=== PATIENT | male | born 1975 | race Caucasian/White ===

== ENCOUNTER 2017-11-02 17:10 | Observation (INO) ==
[2017-11-02] MEDS ORDERED: ASPIRIN 325 MG TABLET PO STA (17:53)
[2017-11-02 18:09] LABS: Basophils # 0.1 10*3/uL (0.0-0.2); Basophils % 0.7 % (0.0-0.8); Eosinophils # 0.4 10*3/uL (0.0-0.87); Eosinophils % 2.1 % (0.00-10.9); Hematocrit 49.3 VOL% (42.0-52.0); Hemoglobin 17.4 GM/DL (14.0-18.0); Immature Granulocytes % 0.5 %; Immature Granulocytes Absolute 0.08 #; Lymphocytes # 4.1 10*3/uL (1.4-4.0); Lymphocytes % 23.3 % (21.2-54.2); Mean Corpuscular HGB Conc 35.3 GM/DL (32-36); Mean Corpuscular Hemoglobin 31 PG (27-34); Mean Platelet Volume 9.9 FL (9.6-12.0); Monocytes # 1.1 10*3/uL (0.11-0.8); Monocytes % 6.4 % (1.7-12.7); Neutrophils # 11.7 10*3/uL (1.4-7.4); Platelet Count 296 T/CUMM (130-400); Red Cell Distribution Width 12.2 % (9.3-17.3); White Blood Count 17.4 T/CUMM (4-12)
[2017-11-02 18:24] LABS: Albumin 3.5 G/DL (3.4-5.0); Bilirubin,Total 0.4 MG/DL (0.2-1.0); Calcium 9.5 MG/DL (8.5-10.1); Osmolality,Calculated 279.7 MOS/KG (273-304); Potassium 3.6 MMOL/L (3.5-5.1); Total Protein 8.1 G/DL (6.4-8.3)
[2017-11-02] MEDS ORDERED: NITROGLYCERIN 2% OINT 1 INCH/GM PACK TOP STA (18:30)
[2017-11-02 18:42] LABS: Barbiturates Screen,Urine Negative (Negative); Benzodiazepines Screen,Urine Negative (Negative); Cannabinoid Screen,Urine Negative (Negative); Opiate Screen,Urine Negative (Negative); Phencyclidine Screen,Urine Negative (Negative)
[2017-11-02] MEDS ORDERED: ACETAMINOPHEN 325 MG TABLET PO PRN (20:34)
[2017-11-02] MEDS ORDERED: DEXTROSE 50% 25 GM/50 ML VIAL IV PRN (20:34)
[2017-11-02] MEDS ORDERED: GLUCAGON 1 MG VIAL IM PRN (20:34)
[2017-11-02 21:34] LABS: Risk Ratio 9.61; VLDL CHOLESTEROL 85.4 MG/DL
[2017-11-02] MEDS: SODIUM CHLORIDE 0.9% 1,000 ML IV SCH (21:52)
[2017-11-02] MEDS: ATORVASTATIN 40 MG TABLET PO SCH (21:52)
[2017-11-02 22:32] LABS: Risk Ratio 9.65; Thyroid Stimulating Hormone 7.13 uIU/ml (0.358-3.74); VLDL CHOLESTEROL 68.4 MG/DL
[2017-11-03] MEDS: INSULIN LISPRO 100 UNIT/ML SUBCUT SCH ×4 (00:15→17:27)
[2017-11-03 00:41] LABS: Alanine Aminotransferase 55 U/L (16-61); Albumin 2.9 G/DL (3.4-5.0); Alkaline Phosphatase 130 U/L (45-117); Aspartate Amino Transferase 36 U/L (0-37); Bilirubin,Total < 0.39 MG/DL (0.2-1.0); Blood Urea Nitrogen 12 MG/DL (7-18); Calcium 8.9 MG/DL (8.5-10.1); Glucose 195 MG/DL (74-106); Osmolality,Calculated 281.5 MOS/KG (273-304); Potassium 3.6 MMOL/L (3.5-5.1); Sodium 139 MMOL/L (136-145); Total Protein 6.8 G/DL (6.4-8.3)
[2017-11-03 00:42] LABS: Basophils # 0.1 10*3/uL (0.0-0.2); Basophils % 0.7 % (0.0-0.8); Eosinophils # 0.4 10*3/uL (0.0-0.87); Eosinophils % 3.1 % (0.00-10.9); Hematocrit 45.6 VOL% (42.0-52.0); Hemoglobin 16.1 GM/DL (14.0-18.0); Immature Granulocytes % 0.7 %; Lymphocytes # 5.5 10*3/uL (1.4-4.0); Lymphocytes % 39.7 % (21.2-54.2); Mean Corpuscular HGB Conc 35.3 GM/DL (32-36); Mean Corpuscular Hemoglobin 31 PG (27-34); Mean Corpuscular Volume 87.2 FL (87-102); Monocytes # 0.8 10*3/uL (0.11-0.8); Monocytes % 5.6 % (1.7-12.7); Neutrophils # 6.9 10*3/uL (1.4-7.4); Neutrophils % 50.2 % (38.7-73.9); Platelet Count 266 T/CUMM (130-400); Red Blood Count 5.23 MC/CUMM (3.8-5.5); Red Cell Distribution Width 12.2 % (9.3-17.3); White Blood Count 13.8 T/CUMM (4-12)
[2017-11-03] MEDS: SODIUM CHLORIDE 0.9% 1,000 ML IV SCH ×2 (06:19→17:29)
[2017-11-03] MEDS: ASPIRIN EC 81 MG TABLET PO SCH (09:47)
[2017-11-03] MEDS: ATORVASTATIN 40 MG TABLET PO SCH (22:03)
[2017-11-04] MEDS: INSULIN LISPRO 100 UNIT/ML SUBCUT SCH ×3 (00:28→11:49)
[2017-11-04] MEDS: SODIUM CHLORIDE 0.9% 1,000 ML IV SCH ×3 (04:41→12:49)
[2017-11-04] MEDS ORDERED: MAGNESIUM SULF RIDER 2 GM in PREMIX 1 EACH IV PRN (06:30)
[2017-11-04] MEDS ORDERED: diphenhydrAMINE CAP 25 MG CAPSULE PO ONE (06:30)
[2017-11-04] MEDS ORDERED: DIAZEPAM 5 MG TABLET PO ONE (06:30)
[2017-11-04] MEDS ORDERED: POTASSIUM CHLORIDE RIDER 10 MEQ in PREMIX 1 EACH IV PRN (06:30)
[2017-11-04] MEDS: ASPIRIN EC 81 MG TABLET PO SCH (09:00)
[2017-11-04] MEDS ORDERED: VERAPAMIL 5 MG/2 ML VIAL ONE (09:34)
[2017-11-04] MEDS ORDERED: NITROGLYCERIN DRIP 50 MG/250 ML BOTTLE IV ONE (09:34)
[2017-11-04] MEDS ORDERED: MIDAZOLAM 2 MG/2 ML VIAL ONE (09:54)
[2017-11-04] MEDS ORDERED: HYDROmorphone 2 MG/1 ML VIAL ONE (09:54)
[2017-11-04] MEDS ORDERED: ENOXAPARIN 30 MG/0.3 ML SYRINGE ONE (10:02)
[2017-11-04 14:11] VITALS: BP 110/70
== END 2017-11-04 16:00 | disposition home or self-care (01) ==
LOC: EDUNIT# → EDBD → N.EDINP 17:10 → N.ED 17:10 → SUATTDRO 18:41 → N.TELES 19:14
PROVIDERS: ADMIT Hospitalist; ATTEND Internal Medicine Geriatric Medicine
PROC: CLCCHCL (ICD-10-PCS; 2017-11-04 10:15)

== ENCOUNTER 2018-07-23 12:30 | Inpatient (IN) ==
[2018-07-23] MEDS ORDERED: ENOXAPARIN 120 MG/0.8 ML SYRINGE SUBCUT ONE (12:39)
[2018-07-23] MEDS ORDERED: ASPIRIN 325 MG TABLET ONE (12:40)
[2018-07-23] MEDS ORDERED: MORPHINE 4 MG/1 ML VIAL ONE (12:40)
[2018-07-23] MEDS ORDERED: NITROGLYCERIN 2% OINT 1 INCH/GM PACK TOP ONE (12:40)
[2018-07-23] MEDS ORDERED: ONDANSETRON 4 MG/2 ML VIAL ONE (12:40)
[2018-07-23] MEDS ORDERED: ONDANSETRON 4 MG/2 ML VIAL IV STA (12:42)
[2018-07-23] MEDS ORDERED: ASPIRIN 325 MG TABLET PO STA (12:42)
[2018-07-23] MEDS ORDERED: NITROGLYCERIN 2% OINT 1 INCH/GM PACK TOP STA (12:42)
[2018-07-23] MEDS ORDERED: MORPHINE 4 MG/1 ML VIAL IV STA (12:42)
[2018-07-23] MEDS ORDERED: ENOXAPARIN 100 MG/ML SYRINGE SUBCUT STA (12:42)
[2018-07-23] MEDS ORDERED: LIDOCAINE 1%/EPI INJ 20 ML VIAL ONE (12:48)
[2018-07-23 12:50] LABS: Basophils # 0.1 10*3/uL (0.0-0.2); Basophils % 0.7 % (0.0-0.8); Eosinophils # 0.3 10*3/uL (0.0-0.87); Eosinophils % 1.7 % (0.00-10.9); Hematocrit 49.7 VOL% (42.0-52.0); Hemoglobin 17.4 GM/DL (14.0-18.0); Immature Granulocytes % 0.5 %; Immature Granulocytes Absolute 0.09 #; Lymphocytes # 5.2 10*3/uL (1.4-4.0); Lymphocytes % 29.6 % (21.2-54.2); Mean Corpuscular Hemoglobin 31 PG (27-34); Mean Corpuscular Volume 88.3 FL (87-102); Mean Platelet Volume 9.7 FL (9.6-12.0); Monocytes # 1.2 10*3/uL (0.11-0.8); Monocytes % 6.7 % (1.7-12.7); Neutrophils # 10.7 10*3/uL (1.4-7.4); Neutrophils % 60.8 % (38.7-73.9); Platelet Count 359 T/CUMM (130-400); Red Blood Count 5.63 MC/CUMM (3.8-5.5); Red Cell Distribution Width 12.5 % (9.3-17.3); White Blood Count 17.6 T/CUMM (4-12)
[2018-07-23] MEDS ORDERED: MIDAZOLAM 2 MG/2 ML VIAL ONE (12:51)
[2018-07-23] MEDS ORDERED: fentaNYL 100 MCG/2 ML VIAL ONE (12:51)
[2018-07-23 12:56] VITALS: BP 141/78
[2018-07-23] MEDS ORDERED: MORPHINE 10 MG/1 ML VIAL ONE ×2 (12:58→14:21)
[2018-07-23 13:00] LABS: PT Patient Result 11.2 SECS; Partial Thromboplastin Time 25.7 SECS (0-40)
[2018-07-23] MEDS ORDERED: ENOXAPARIN 60 MG/0.6 ML SYRINGE ONE (13:01)
[2018-07-23] MEDS ORDERED: METOPROLOL TARTRATE 5 MG/5 ML VIAL IV ONE (13:03)
[2018-07-23] MEDS ORDERED: TIROFIBAN 5,000 MCG/100 ML PREMIX IV ONE (13:06)
[2018-07-23 13:11] LABS: Albumin 3.7 G/DL (3.4-5.0); Bilirubin,Total 0.9 MG/DL (0.2-1.0); Calcium 9.5 MG/DL (8.5-10.1); Osmolality,Calculated 285.5 MOS/KG (273-304); Potassium 3.7 MMOL/L (3.5-5.1); Total Protein 7.7 G/DL (6.4-8.3)
[2018-07-23] MEDS ORDERED: TICAGRELOR 90 MG TABLET ONE (13:39)
[2018-07-23] MEDS ORDERED: NITROGLYCERIN DRIP 50 MG/250 ML BOTTLE IV PRN (14:19)
[2018-07-23] MEDS ORDERED: ONDANSETRON 4 MG/2 ML VIAL IV PRN (14:20)
[2018-07-23] MEDS ORDERED: DOCUSATE SODIUM 100 MG CAPSULE PO PRN (14:20)
[2018-07-23] MEDS ORDERED: ZALEPLON 5 MG CAPSULE PO PRN (14:20)
[2018-07-23] MEDS ORDERED: MAGNESIUM SULF RIDER 2 GM in PREMIX 1 EACH IV PRN (14:20)
[2018-07-23] MEDS ORDERED: ACETAMINOPHEN 325 MG TABLET PO PRN (14:20)
[2018-07-23] MEDS ORDERED: MAGNESIUM SULF RIDER 4 GM in PREMIX 1 EACH IV PRN (14:20)
[2018-07-23] MEDS ORDERED: HYDROmorphone 2 MG/1 ML VIAL IV PRN (14:25)
[2018-07-23] MEDS ORDERED: fentaNYL 100 MCG/2 ML VIAL IV PRN (14:25)
[2018-07-23] MEDS ORDERED: TIROFIBAN 5,000 MCG/100 ML PREMIX IV SCH (14:30)
[2018-07-23] MEDS ORDERED: SODIUM CHLORIDE 0.45% 1,000 ML IV SCH (14:30)
[2018-07-23 15:34] LABS: Barbiturates Screen,Urine Negative (Negative); Benzodiazepines Screen,Urine Negative (Negative); Cannabinoid Screen,Urine Negative (Negative); Opiate Screen,Urine Positive (Negative); Phencyclidine Screen,Urine Negative (Negative)
[2018-07-23] MEDS ORDERED: GLUCAGON 1 MG VIAL IM PRN (16:16)
[2018-07-23] MEDS ORDERED: DEXTROSE 50% 25 GM/50 ML SYRINGE IV PRN (16:16)
[2018-07-23] MEDS ORDERED: diphenhydrAMINE CAP 25 MG CAPSULE PO PRN (16:17)
[2018-07-23] MEDS ORDERED: MAGNESIUM HYDROXIDE SUSP 30 ML UDCUP PO PRN (16:17)
[2018-07-23] MEDS: INSULIN REGULAR 100 UNIT/ML SUBCUT SCH ×2 (18:05→20:20)
[2018-07-23] MEDS: TICAGRELOR 90 MG TABLET PO SCH (20:20)
[2018-07-23] MEDS: METOPROLOL TARTRATE 50 MG TABLET PO SCH (20:21)
[2018-07-23] MEDS: ATORVASTATIN 40 MG TABLET PO SCH (20:21)
[2018-07-24 04:21] LABS: Basophils # 0.1 10*3/uL (0.0-0.2); Basophils % 0.5 % (0.0-0.8); Eosinophils # 0.4 10*3/uL (0.0-0.87); Hemoglobin 15.8 GM/DL (14.0-18.0); Immature Granulocytes % 0.6 %; Lymphocytes # 2.6 10*3/uL (1.4-4.0); Lymphocytes % 14.4 % (21.2-54.2); Mean Corpuscular HGB Conc 34.3 GM/DL (32-36); Mean Corpuscular Hemoglobin 31 PG (27-34); Mean Corpuscular Volume 89.7 FL (87-102); Mean Platelet Volume 9.8 FL (9.6-12.0); Monocytes # 1.2 10*3/uL (0.11-0.8); Monocytes % 6.7 % (1.7-12.7); Neutrophils # 13.4 10*3/uL (1.4-7.4); Neutrophils % 75.8 % (38.7-73.9); Platelet Count 300 T/CUMM (130-400); Red Blood Count 5.13 MC/CUMM (3.8-5.5); Red Cell Distribution Width 12.6 % (9.3-17.3); White Blood Count 17.7 T/CUMM (4-12)
[2018-07-24 04:30] LABS: Calcium 8.3 MG/DL (8.5-10.1)
[2018-07-24 04:35] LABS: VLDL CHOLESTEROL 63.2 MG/DL
[2018-07-24] MEDS: ASPIRIN EC 81 MG TABLET PO SCH (08:32)
[2018-07-24] MEDS: TICAGRELOR 90 MG TABLET PO SCH ×2 (08:32→20:49)
[2018-07-24] MEDS: INSULIN REGULAR 100 UNIT/ML SUBCUT SCH ×4 (08:32→20:51)
[2018-07-24] MEDS: METOPROLOL TARTRATE 50 MG TABLET PO SCH ×2 (08:32→20:52)
[2018-07-24] MEDS: PANTOPRAZOLE 40 MG TABLET PO SCH (08:32)
[2018-07-24] MEDS: ENOXAPARIN 40 MG/0.4 ML SYRINGE SUBCUT SCH (08:32)
[2018-07-24] MEDS: CLINDAMYCIN 300 MG CAPSULE PO SCH ×3 (10:41→20:49)
[2018-07-24] MEDS ORDERED: CLORAZEPATE 3.75 MG TABLET PO PRN (10:59)
[2018-07-24] MEDS: NICOTINE 21 MG/24 HR PATCH TRANSDERM SCH (11:32)
[2018-07-24] MEDS: SERTRALINE 25 MG TABLET PO SCH (11:33)
[2018-07-24] MEDS: metFORMIN 500 MG TABLET PO SCH (17:28)
[2018-07-24] MEDS: glyBURIDE 2.5 MG TABLET PO SCH (17:39)
[2018-07-24] MEDS: ATORVASTATIN 40 MG TABLET PO SCH (20:50)
[2018-07-25 06:38] LABS: Basophils # 0.1 10*3/uL (0.0-0.2); Basophils % 0.4 % (0.0-0.8); Eosinophils # 0.4 10*3/uL (0.0-0.87); Eosinophils % 2.5 % (0.00-10.9); Hematocrit 42.8 VOL% (42.0-52.0); Hemoglobin 14.7 GM/DL (14.0-18.0); Immature Granulocytes % 0.4 %; Immature Granulocytes Absolute 0.06 #; Lymphocytes # 3.5 10*3/uL (1.4-4.0); Mean Corpuscular HGB Conc 34.3 GM/DL (32-36); Mean Corpuscular Hemoglobin 31 PG (27-34); Mean Corpuscular Volume 89.4 FL (87-102); Monocytes % 6.7 % (1.7-12.7); Neutrophils # 9.5 10*3/uL (1.4-7.4); Platelet Count 242 T/CUMM (130-400); Red Blood Count 4.79 MC/CUMM (3.8-5.5); Red Cell Distribution Width 12.5 % (9.3-17.3); White Blood Count 14.4 T/CUMM (4-12)
[2018-07-25 06:54] LABS: CKMB % 12.3 %; Calcium 8.5 MG/DL (8.5-10.1); Potassium 3.5 MMOL/L (3.5-5.1)
[2018-07-25 07:05] LABS: Troponin I 76.8 NG/ML (0.00-0.045)
[2018-07-25] MEDS ORDERED: CLOPIDOGREL 300 MG TABLET PO ONE (07:37)
[2018-07-25] MEDS: INSULIN REGULAR 100 UNIT/ML SUBCUT SCH ×2 (08:32→11:42)
[2018-07-25] MEDS ORDERED: POTASSIUM CHLORIDE 20 MEQ TABLET PO ONE (08:34)
[2018-07-25] MEDS: glyBURIDE 2.5 MG TABLET PO SCH (09:03)
[2018-07-25] MEDS: ASPIRIN EC 81 MG TABLET PO SCH (09:52)
[2018-07-25] MEDS: METOPROLOL TARTRATE 50 MG TABLET PO SCH (09:52)
[2018-07-25] MEDS: SERTRALINE 25 MG TABLET PO SCH (09:52)
[2018-07-25] MEDS: CLINDAMYCIN 300 MG CAPSULE PO SCH (09:52)
[2018-07-25] MEDS: metFORMIN 500 MG TABLET PO SCH (09:52)
[2018-07-25] MEDS: NICOTINE 21 MG/24 HR PATCH TRANSDERM SCH (09:52)
[2018-07-25] MEDS: PANTOPRAZOLE 40 MG TABLET PO SCH (09:52)
[2018-07-25] MEDS: ENOXAPARIN 40 MG/0.4 ML SYRINGE SUBCUT SCH (09:53)
[2018-07-26] MEDS ORDERED: CLOPIDOGREL 75 MG TABLET PO SCH (09:00)
== END 2018-07-25 11:50 | disposition home or self-care (01) | DRG 247 ==
LOC: N.ED 12:30 → N.CC 12:46 → N.EDINP 13:33 → N.CC 14:11
PROVIDERS: ADMIT Internal Medicine Interventional Cardiology; ATTEND Internal Medicine Interventional Cardiology
PROC: CLCCHCL (ICD-10-PCS; 2018-07-23 13:45)

== ENCOUNTER 2018-09-15 23:33 | Observation (INO) ==
[2018-09-16] MEDS ORDERED: DEXTROSE 50% 25 GM/50 ML VIAL IV PRN (04:38)
[2018-09-16] MEDS ORDERED: GLUCAGON 1 MG VIAL IM PRN (04:38)
[2018-09-16] MEDS ORDERED: MORPHINE 4 MG/1 ML VIAL IV PRN (04:57)
[2018-09-16] MEDS ORDERED: ONDANSETRON 4 MG/2 ML VIAL IV PRN (04:58)
[2018-09-16] MEDS: INSULIN REGULAR 100 UNIT/ML SUBCUT SCH ×2 (08:13→12:13)
[2018-09-16] MEDS ORDERED: METOPROLOL TARTRATE 50 MG TABLET PO SCH (09:00)
[2018-09-16] MEDS ORDERED: PANTOPRAZOLE 40 MG TABLET PO SCH (09:00)
[2018-09-16] MEDS ORDERED: CLOPIDOGREL 75 MG TABLET PO SCH (09:00)
[2018-09-16] MEDS ORDERED: ASPIRIN 325 MG TABLET PO SCH (09:00)
[2018-09-16] MEDS ORDERED: NITROGLYCERIN SL 0.4 MG TABLET SL PRN (10:02)
[2018-09-16] MEDS ORDERED: ENOXAPARIN 100 MG/ML SYRINGE SUBCUT SCH (12:00)
[2018-09-16 12:02] VITALS: BP 110/63
[2018-09-16] MEDS ORDERED: ATORVASTATIN 20 MG TABLET PO SCH (21:00)
== END 2018-09-16 13:15 | disposition home or self-care (01) ==
LOC: EDBD → EDUNIT# → N.ED 23:33 → N.EDINP 23:33 → N.TELES 09-16 03:26
PROVIDERS: ADMIT Internal Medicine; ATTEND Internal Medicine